=== PATIENT | female | born 1985 | race Caucasian/White ===

== ENCOUNTER 2016-08-20 13:53 | Emergency (ER) | payer BC ==
[2016-08-20] MEDS ORDERED: KETOROLAC TROMETHAMINE INJ/PF 30 MG/1 ML SDV IV ONE (14:19)
--- NOTE | 2016-08-20 14:21 | ER Document Report ---
ED Medical Screen (RME) - General Stated Complaint: RIGHT SIDE AND BACK PAIN Time seen by provider: 14:19 Mode of Arrival: Ambulatory Information source: Patient Notes: 31-year-old female complaining of right flank pain that woke her up at 5:30 and has now radiated to his right lower quadrant. She is unable to urinate the pain is very severe. She can't keep still. No history kidney stones. She has an IUD. - Related Data Allergies/Adverse Reactions: No Known Allergies Allergy (Verified 08/20/16 14:18)
[2016-08-20] MEDS ORDERED: ONDANSETRON 4 MG TAB.RAPDIS PO ONE (14:22)
[2016-08-20] MEDS ORDERED: MORPHINE SULFATE 10 MG/ML INJ IV ONE (14:22)
--- NOTE | 2016-08-20 14:49 | ER Document Report ---
ED GI/ <DEBMONAE - Last Filed: 08/20/16 17:11> - General Mode of Arrival: Ambulatory Information source: Patient TRAVEL OUTSIDE OF THE [place] IN LAST 30 DAYS: No - HPI Patient complains to provider of: Abdominal pain - RLQ and suprapubic, Flank pain - right. No: Vaginal discharge Onset: This morning Location: RLQ, Right flank, Suprapubic Sexual history: IUD Associated symptoms: Other - see above <ALLYSON PHILLIP - Last Filed: 08/20/16 23:21> - General Chief Complaint: Flank Pain Stated Complaint: RIGHT SIDE AND BACK PAIN Notes: 31 year old female with no history of endometriosis, ovarian cysts, abnormal pap smears, or gallbladder problems presents to the ED complaining of right flank pain which radiates to the RLQ and suprapubic regions that began at 05: 30a this morning. Patient states that the pain eased off later this morning and she went to work. Patient had fries for lunch and states that her right flank pain and RLQ pain started shortly after. Patient additionally complains of urinary retention and states that since she arrived to the ED, the pain has radiated to her suprapubic region. Patient denies burning with urination, hematuria, or vaginal discharge. Patient states that she had a normal bowel movement last night with no sign of blood. Patient has taken Tylenol this afternoon for pain, but to no relief. Patient states she has an IUD in place. ( ALLYSON PHILLIP) - Related Data Allergies/Adverse Reactions: No Known Allergies Allergy (Verified 08/20/16 14:18) Past Medical History - General Information source: Patient - Social History Smoking Status: Never Smoker Chew tobacco use (# tins/day): No Frequency of alcohol use: None Drug Abuse: None Family History: Reviewed & Not Pertinent Patient has suicidal ideation: No Patient has homicidal ideation: No - Medical History Medical History: Negative <ALLYSON PHILLIP - Last Filed: 08/20/16 23:21> Review of Systems - Review of Systems Constitutional: No symptoms reported EENT: No symptoms reported Cardiovascular: No symptoms reported Respiratory: No symptoms reported Gastrointestinal: See HPI, Abdominal pain - RLQ and suprapubic Genitourinary: See HPI, Flank pain - right flank pain, Retention. denies: Burning, Hematuria Female Genitourinary: No symptoms reported. denies: Vaginal discharge Musculoskeletal: No symptoms reported Skin: No symptoms reported Hematologic/Lymphatic: No symptoms reported Neurological/Psychological: No symptoms reported -: Yes All other systems reviewed and negative <ALLYSON PHILLIP - Last Filed: 08/20/16 23:21> Physical Exam <MONAE BOYD - Last Filed: 08/20/16 17:11> - General General appearance: Alert, Other - appears uncomfortable In distress: None - HEENT Head: Normocephalic, Atraumatic Eyes: Normal Extraocular movements intact: Yes Pupils: PERRL - Respiratory Respiratory status: No respiratory distress Breath sounds: Normal - Cardiovascular Rhythm: Regular Heart sounds: Normal auscultation - Abdominal Inspection: Normal Distension: No distension Tenderness: Nontender, Other - no rigidity. No: Guarding, Rebound - Extremities General upper extremity: Normal inspection, Normal ROM General lower extremity: Normal inspection, Normal ROM - Neurological Neuro grossly intact: Yes Cognition: Normal Orientation: AAOx4 [place] Coma Scale Eye Opening: Spontaneous [place] Coma Scale Verbal: Oriented [place] Coma Scale Motor: Obeys Commands [place] Coma Scale Total: 15 Speech: Normal - Psychological Associated symptoms: Normal affect, Normal mood - Skin Skin Temperature: Warm Skin Moisture: Dry Skin Color: Normal <ALLYSON PHILLIP - Last Filed: 08/20/16 23:21> - Vital signs Vitals: Temp Pulse Resp BP Pulse Ox 97.3 F 118 H 20 166/104 H 100 08/20/16 14:20 08/20/16 14:20 08/20/16 14:20 08/20/16 14:20 08/20/16 14:20 (MONAE BOYD) (ALLYSON PHILLIP) Course - Laboratory Result Diagrams: 08/20/16 15:00 08/20/16 15:00 <MONAE BOYD - Last Filed: 08/20/16 17:11> - Laboratory Result Diagrams: 08/20/16 15:00 08/20/16 15:00 <ALLYSON PHILLIP - Last Filed: 08/20/16 23:21> - Re-evaluation Re-evalutation: 08/20/16 17:09 I personally performed the services described in the documentation, reviewed and edited the documentation which was dictated to my scribe in my presence, and it accurately records my words and actions. She presents emergency Department with chief complaint of flank pain abdominal pain onset 5:30 this morning she said it came on severely and suddenly improved when she drove her kids to school and she came home and for several hours she's been suffering with right-sided flank pain. She says it feels like labor. Her right. The been regular and on time she denies a chance of being . She has no pelvic pain history of ovarian cyst or ectopic pregnancies in the past. She also denies a history of kidney stones. On examination she is a great deal of pain she is well-appearing nontoxic with stable vital signs other than tachycardia abdomen on serial abdominal examination no acute guarding rebound rigidity CT scan shows a 4.7 cm kidney stone with hydronephrosis her urine is not infected she's not febrile or septic. Pain is controlled with morphine and Zofran and Toradol here also gave HER-2 oral Percocet. Given a discharge her to home with Percocet Zofran patient about our urologist on-call doctor back she's call her office tomorrow to be seen in 2-3 days and discussed reasons for ED return sooner (MONAE BOYD) - Vital Signs Vital signs: Temp Pulse Resp BP Pulse Ox 97.4 F 73 16 113/68 100 08/20/16 18:01 08/20/16 18:01 08/20/16 18:01 08/20/16 18:01 08/20/16 18:01 (MONAE BOYD) (ALLYSON PHILLIP) - Laboratory Laboratory results interpreted by me: 08/20/16 08/20/16 15:00 15:00 Sodium 145.5 H Urine Blood SMALL H (MONAE BOYD) Scribe Documentation - Scribe Written by Scribe:: Yonathan Michael, 08/20/2016 16:10 acting as scribe for :: Deb <ALLYSON PHILLIP - Last Filed: 08/20/16 23:21>
[2016-08-20 15:27] LABS: ABSOLUTE EOSINOPHILS # (AUTO) 0.2 10^3/uL (0.0-0.6); ABSOLUTE LYMPHOCYTES (AUTO) 1.9 10^3/uL (0.5-4.7); ABSOLUTE MONOCYTES (AUTO) 0.5 10^3/uL (0.1-1.4); ABSOLUTE NEUT (AUTO) 6.6 10^3/uL (1.7-8.2); BASOPHILS % (AUTO) 0.5 % (0-2); EOSINOPHILS % (AUTO) 2.5 % (0-6); HEMATOCRIT 41.9 % (36.0-47.0); HEMOGLOBIN 14.4 g/dL (12.0-15.5); HGB HCT DIFFERENCE 1.3; LYMPHOCYTES % (AUTO) 20.5 % (13-45); MEAN CORPUSCULAR HEMOGLOBIN 27.5 pg (27.0-33.4); MEAN CORPUSCULAR HGB CONC 34.3 g/dL (32.0-36.0); MEAN CORPUSCULAR VOLUME 80 fl (80-97); MONOCYTES % (AUTO) 4.9 % (3-13); RED BLOOD COUNT 5.22 10^6/uL (3.72-5.28); RED CELL DISTRIBUTION WIDTH 13.7 % (11.5-14.0); SEGMENTED NEUTROPHILS % (AUTO) 71.6 % (42-78); WHITE BLOOD COUNT 9.2 10^3/uL (4.0-10.5)
[2016-08-20 15:30] LABS: AMORPHOUS SEDIMENT,URINE TRACE /HPF; APPEARANCE,URINE CLOUDY; BILIRUBIN,URINE NEGATIVE (NEGATIVE); GLUCOSE, URINE NEGATIVE (NEGATIVE); KETONES,URINE NEGATIVE (NEGATIVE); LEUKOCYTE ESTERASE,URINE NEGATIVE (NEGATIVE); NITRITE,URINE NEGATIVE (NEGATIVE); PROTEIN,URINE NEGATIVE (NEGATIVE); URINE SPECIFIC GRAVITY 1.025; UROBILINOGEN,URINE NEGATIVE mg/dL (<2.0)
[2016-08-20 15:36] LABS: ALANINE AMINOTRANSFERASE 36 U/L (9-52); ALBUMIN 4.2 g/dL (3.5-5.0); ALKALINE PHOSPHATASE 73 U/L (38-126); ANION GAP 13 (5-19); ASPARTATE AMINO TRANSFERASE 20 U/L (14-36); BILIRUBIN,TOTAL 0.4 mg/dL (0.2-1.3); BLOOD UREA NITROGEN 16 mg/dL (7-20); CALCIUM 9.6 mg/dL (8.4-10.2); CARBON DIOXIDE 28 mmol/L (22-30); CHLORIDE 105 mmol/L (98-107); CREATININE RESULT 0.72 mg/dL (0.52-1.25); GLUCOSE 86 mg/dL (75-110); POTASSIUM 3.8 mmol/L (3.6-5.0); SODIUM 145.5 mmol/L (137-145); TOTAL PROTEIN 7.4 g/dL (6.3-8.2)
[2016-08-20] MEDS ORDERED: OXYCODONE-ACETAMINOPHEN 5-325 MG TABLET PO ONE (17:09)
[2016-08-20 18:14] VITALS: BP 113/68
[2016-08-21 16:52] LABS: URINE BARBITURATES SCREEN NEGATIVE; URINE METHADONE SCREEN NEGATIVE; URINE PHENCYCLIDINE SCREEN NEGATIVE
--- NOTE | 2016-08-27 09:22 | ER Document Report ---
Doctor's Note Notes: 08/27/16 09:21 diagnosis 1. acute nephrolithiasis
== END 2016-08-20 18:14 | disposition home or self-care (01) ==
LOC: ER 13:53
DX: N20.0 Calculus of kidney (principal); R10.31 Right lower quadrant pain; R10.9 Unspecified abdominal pain
CPT/HCPCS: 99284; 51701; 96374; 96375; 36415; 87086; 84703; 85025; 80053; 81001; 80307; 76380; S0119; J1885; J2270

== ENCOUNTER 2016-08-21 06:59 | Emergency (ER) | payer BC ==
--- NOTE | 2016-08-21 07:44 | ER Document Report ---
ED GI/ - General Chief Complaint: Flank Pain Stated Complaint: FLANK PAIN Notes: Patient is a 31-year-old female who presents with 2 days of right flank pain radiating into her groin. She was diagnosed with a 4.6 mm right kidney stone yesterday in the emergency room and discharged home with Percocet. This morning , she had worsening pain and tried the Percocet, but vomited it up. She denies hematuria, fevers, hematemesis, diarrhea or constipation. TRAVEL OUTSIDE OF THE [place] IN LAST 30 DAYS: No - Related Data Allergies/Adverse Reactions: No Known Allergies Allergy (Verified 08/21/16 08:06) Past Medical History - General Information source: Patient - Social History Smoking Status: Never Smoker Chew tobacco use (# tins/day): No Frequency of alcohol use: None Drug Abuse: None Family History: Reviewed & Not Pertinent Patient has suicidal ideation: No Patient has homicidal ideation: No - Immunizations Hx Diphtheria, Pertussis, Tetanus Vaccination: Yes Review of Systems - Review of Systems Notes: REVIEW OF SYSTEMS: CONSTITUTIONAL: -fevers, -chills EENT: -eye pain, -difficulty swallowing, -nasal congestion CARDIOVASCULAR:-chest pain, -syncope. RESPIRATORY: -cough, -SOB GASTROINTESTINAL: -abdominal pain, +nausea, +vomiting, -diarrhea GENITOURINARY: -dysuria, -hematuria, +right flank pain MUSCULOSKELETAL: -back pain, -neck pain SKIN: -rash or skin lesions. HEMATOLOGIC: -easy bruising or bleeding. LYMPHATIC: -swollen, enlarged glands. NEUROLOGICAL: -altered mental status or loss of consciousness, -headache, - neurologic symptoms PSYCHIATRIC: -anxiety, -depression. ALL OTHER SYSTEMS REVIEWED AND NEGATIVE. Physical Exam - Vital signs Vitals: Temp Pulse Resp BP Pulse Ox 98.8 F 82 16 150/86 H 97 08/21/16 07:20 08/21/16 07:20 08/21/16 07:20 08/21/16 07:20 08/21/16 07:20 - Notes Notes: PHYSICAL EXAMINATION: GENERAL: Mild distress. HEAD: Atraumatic, normocephalic. EYES: Pupils equal round and reactive to light, extraocular movements intact, sclera anicteric, conjunctiva are normal. ENT: nares patent, oropharynx clear without exudates. Moist mucous membranes. NECK: Normal range of motion, supple without lymphadenopathy LUNGS: Breath sounds clear to auscultation bilaterally and equal. No wheezes rales or rhonchi. HEART: Regular rate and rhythm without murmurs ABDOMEN: Soft, nontender, normoactive bowel sounds. No guarding, no rebound. No masses appreciated. EXTREMITIES: Normal range of motion, no pitting or edema. No cyanosis. NEUROLOGICAL: Cranial nerves grossly intact. Normal speech, normal gait. Normal sensory, motor, and reflex exams. PSYCH: Normal mood, normal affect. SKIN: Warm, Dry, normal turgor, no rashes or lesions noted. Course - Re-evaluation Re-evalutation: 08/21/16 10:14 patient's pain and nausea under control at this time. Patient feels comfortable enough to go home to continue outpatient pain control and use her antinausea medicine. She will follow-up with the urologist this week. No evidence of infected kidney stone at this time. Given return precautions and she understands. - Vital Signs Vital signs: Temp Pulse Resp BP Pulse Ox 98.8 F 82 16 150/86 H 97 08/21/16 07:20 08/21/16 07:20 08/21/16 07:20 08/21/16 07:20 08/21/16 07:20 - Laboratory Laboratory results interpreted by me: 08/21/16 08:20 Urine Blood SMALL H Ur Leukocyte Esterase SMALL H Discharge - Discharge Clinical Impression: Kidney stone on right side Condition: Good Disposition: HOME, SELF-CARE Additional Instructions: KIDNEY STONE: You are passing or have passed a kidney stone. These stones are usually due to increased calcium or uric acid concentrations in your urine. Stones within the kidney itself are not painful. The pain occurs as the stone leaves the kidney to pass down the long tube, called the ureter, leading to the bladder. If the stone is small, it will usually pass by itself. Most patients can pass the stone at home. You will usually receive medications for pain, nausea or vomiting, and sometimes a medication to assist in passing the kidney stone. However, if the pain is very severe or if vomiting prevents you from taking oral pain medications, you may need to return for further treatment. Drink three or four quarts of fluids per day. You will be given pain medication (if needed) and urine strainers. Strain all your urine to see if the stone passes. If your doctor has asked you to bring the stone in for analysis, return with the stone once it has passed. Return if pain or vomiting become severe, if you develop a high fever, if you are unable to pass your urine, or if other unusual symptoms occur. TORADOL INJECTION: You have been given an injection of ketorolac tromethamine (Toradol). This is an excellent, safe drug for pain control. It also has potent antiinflammatory action. You should have significant pain relief within about one hour. Toradol is not addicting and is non-sedating. It does not interfere with driving or work. Call or return if you develop itching, hives, shortness of breath, or rash. PAIN MEDICATION INJECTION: You have received an injection of a pain medication. You should experience significant pain relief within 45 minutes. This drug is a narcotic - - it will impair your judgement, slow your reaction time and make you sleepy ( as well as relieve your pain). Narcotics also can cause nausea. You should not drive, work with machinery, or perform any task requiring mental alertness until all effects of the medication are gone -- six to eight hours. Do not take any alcohol, or sedatives, and do not take any other medication without checking with your physician. ANTINAUSEA MEDICATION: You have been given a medication to suppress nausea and vomiting. This type of medication can be given as a shot, pill, or suppository. It will usually last for many hours. Pills and shots usually last six to eight hours, suppositories last about 12 hours. For the typical illness, only one or two doses of the medication may be necessary. Mild lightheadedness may occur. This type of medicine can cause drowsiness. Do not drive or operate dangerous machinery while under its influence. Do not mix with alcohol. See your doctor at once if you have muscle spasms or tightness, or uncontrollable motions (particularly of the neck, mouth, or jaw). Persistent vomiting or severe lightheadedness should also be evaluated by the physician. ORAL NARCOTIC MEDICATION: You have been given a prescription for pain control. This medication is a narcotic. It's best taken with food, as nausea can result if taken on an empty stomach. Don't operate machinery or drive within six hours of taking this medication. Do not combine this medicine with alcohol, or with any medication which can cause sedation (such as cold tablets or sleeping pills) unless you get permission from the physician. Narcotics tend to cause constipation. If possible, drink plenty of fluids and eat a diet high in fiber and fruits. Please be aware that prescription narcotics also have the potential for abuse. People become addicted to these medications because of the general sense of wellbeing that they induce. This feeling along with a significant reduction in tension, anxiety, and aggression provides a stimulating seductive quality to these drugs. Once your pain is under control, we encourage you to discard your unused narcotics. FLOMAX (tamsulosin): Flomax is a medicine that shrinks the prostate gland. It helps relieve symptoms of benign prostatic hypertrophy, such as frequent urination, weak stream, and inadequate emptying. It has been shown to dilate the ureter (tube leading from the kidney to the bladder) and help in passing kidney stones Flomax usually causes no side effects. You may notice slight tiredness and dizziness for a few days. Some patients develop nasal congestion. Rarely, impotence can occur. If the symptoms are bothersome and don't improve with continued use, call your doctor. Contact your doctor or return if you have fainting spells, severe weakness or dizziness, shortness of breath, or rash. FOLLOW-UP CARE: If you have been referred to a physician for follow-up care, call the physician s office for an appointment as you were instructed or within the next two days. If you experience worsening or a significant change in your symptoms, notify the physician immediately or return to the Emergency Department at any time for re-evaluation. Prescriptions: Tamsulosin HCl [Flomax 0.4 mg Cap.sr] 0.4 mg PO DAILY #7 cap.[id number] Referrals: ALISON RED MD [ACTIVE STAFF] - Follow up as needed
[2016-08-21] MEDS ORDERED: MORPHINE SULFATE 10 MG/ML INJ IV ONE ×2 (07:47→09:32)
[2016-08-21] MEDS ORDERED: KETOROLAC TROMETHAMINE INJ/PF 30 MG/1 ML SDV IV ONE (07:47)
[2016-08-21] MEDS ORDERED: ONDANSETRON HCL INJ/PF 4 MG/2 ML SDV IV ONE (07:47)
[2016-08-21] MEDS ORDERED: NORMAL SALINE 1000 ML 1,000 ML IV ONE (08:12)
[2016-08-21 08:59] LABS: APPEARANCE,URINE SLIGHTLY-CLOUDY; BILIRUBIN,URINE NEGATIVE (NEGATIVE); CALCIUM OXALATE CRYSTALS,URINE MANY /HPF; GLUCOSE, URINE NEGATIVE (NEGATIVE); KETONES,URINE NEGATIVE (NEGATIVE); LEUKOCYTE ESTERASE,URINE SMALL (NEGATIVE); NITRITE,URINE NEGATIVE (NEGATIVE); PROTEIN,URINE NEGATIVE (NEGATIVE); URINE SPECIFIC GRAVITY 1.026; UROBILINOGEN,URINE NEGATIVE mg/dL (<2.0)
[2016-08-21] MEDS ORDERED: ONDANSETRON 4 MG TAB.RAPDIS PO ONE (10:13)
[2016-08-21 10:32] VITALS: BP 129/70
[2016-08-21] MEDS ORDERED: METOCLOPRAMIDE HCL INJ/PF 10 MG/2 ML SDV IV ONE (10:35)
== END 2016-08-21 11:00 | disposition home or self-care (01) ==
LOC: ER 06:59
DX: N20.0 Calculus of kidney (principal); R10.9 Unspecified abdominal pain; R11.2 Nausea with vomiting, unspecified
CPT/HCPCS: 96376; 99284; 96361; 96374; 96375; 81001; S0119; J1885; J2765; J2270; J2405; J7030

== ENCOUNTER → 2017-08-23 | Outpatient (CLI) | payer SELFPAY ==
[2017-08-23 12:04] LABS: ABSOLUTE EOSINOPHILS # (AUTO) 0.3 10^3/uL (0.0-0.6); ABSOLUTE LYMPHOCYTES (AUTO) 1.6 10^3/uL (0.5-4.7); ABSOLUTE MONOCYTES (AUTO) 0.6 10^3/uL (0.1-1.4); ABSOLUTE NEUT (AUTO) 6.7 10^3/uL (1.7-8.2); BASOPHILS % (AUTO) 0.5 % (0-2); EOSINOPHILS % (AUTO) 2.8 % (0-6); HEMATOCRIT 39.4 % (36.0-47.0); HEMOGLOBIN 13.3 g/dL (12.0-15.5); LYMPHOCYTES % (AUTO) 17.4 % (13-45); MEAN CORPUSCULAR HEMOGLOBIN 27.4 pg (27.0-33.4); MEAN CORPUSCULAR HGB CONC 33.8 g/dL (32.0-36.0); MEAN CORPUSCULAR VOLUME 81 fl (80-97); MONOCYTES % (AUTO) 6.5 % (3-13); PLATELET COUNT 226 10^3/uL (150-450); RED BLOOD COUNT 4.87 10^6/uL (3.72-5.28); RED CELL DISTRIBUTION WIDTH 13.8 % (11.5-14.0); SEGMENTED NEUTROPHILS % (AUTO) 72.8 % (42-78); TOTAL CELLS COUNTED % (AUTO) 100 %; WHITE BLOOD COUNT 9.2 10^3/uL (4.0-10.5)
[2017-08-23 12:30] LABS: ALANINE AMINOTRANSFERASE 33 U/L (9-52); ALBUMIN 4.6 g/dL (3.5-5.0); ALKALINE PHOSPHATASE 75 U/L (38-126); ANION GAP 13 (5-19); ASPARTATE AMINO TRANSFERASE 18 U/L (14-36); BILIRUBIN,DIRECT 0.3 mg/dL (0.0-0.4); BILIRUBIN,TOTAL 0.5 mg/dL (0.2-1.3); BLOOD UREA NITROGEN 17 mg/dL (7-20); CALCIUM 9.8 mg/dL (8.4-10.2); CARBON DIOXIDE 25 mmol/L (22-30); CHLORIDE 103 mmol/L (98-107); GLUCOSE 84 mg/dL (75-110); LIPASE 62.3 U/L (23-300); POTASSIUM 4.4 mmol/L (3.6-5.0); SODIUM 141.1 mmol/L (137-145); TOTAL PROTEIN 7.3 g/dL (6.3-8.2)
--- NOTE | 2017-08-23 14:07 | RADIOLOGY REPORT (SQ) ---
EXAM DESCRIPTION: ABDOMEN 2 VIEWS COMPLETED DATE/TIME: 08/23/2017 12:11 pm REASON FOR STUDY: UNSPECIFIED ABDOMINAL PAIN R10.9 UNSPECIFIED ABDOMINAL PAIN R10.9 UNSPECIFIED AB DOMINAL PAIN R10.9 UNSPECIFIED ABDOMINAL PAIN COMPARISON: None. NUMBER OF VIEWS: Two views. TECHNIQUE: Supine and erect/decubitus radiographic images of the abdomen acquired. LIMITATIONS: None. FINDINGS: FREE AIR: None. No abnormal gas collections. LUNG BASES: Clear. BOWEL GAS PATTERN: Nonobstructive pattern. No dilated loops or air fluid levels. CALCIFICATIONS: No suspicious calcifications. SOFT TISSUES: No gross mass or suggestion of organomegaly. HARDWARE: IUD. BONES: No acute fracture. No worrisome bone lesions. OTHER: No other significant finding. IMPRESSION: NO RADIOGRAPHIC EVIDENCE FOR ACUTE ABDOMINAL DISEASE. TECHNICAL DOCUMENTATION: JOB ID: [id number] [employer]- All Rights Reserved
== END ==
LOC: OD 11:19
PROVIDERS: ATTEND Nurse Practitioner Acute Care
DX: R10.9 Unspecified abdominal pain (principal)
CPT/HCPCS: 36415; 74019; 80053; 83690; 85025; 87086

== ENCOUNTER 2019-06-26 18:05 | Emergency (ER) | payer BC ==
--- NOTE | 2019-06-26 20:06 | ER Document Report ---
ED Medical Screen (RME) - General Chief Complaint: Irregular Pulse Stated Complaint: CHEST TIGHTNESS Time Seen by Provider: 06/26/19 19:57 Primary Care Provider: ANDRES BHATT NP [Primary Care Provider] - Follow up as needed Notes: Patient is a 34-year-old female who presents emergency department with a chief complaint of her heart skipping beats. Patient reports is been intermittent over the past few years but worse over the past few days. Patient reports she is under a lot more stress that she is watching two extra kids in her home. Patient reports she also has a cough and congestion has been treating herself with [id number] Advil Cold and Sinus and Mucinex. Patient reports she does drink 1 cup of coffee per day but has not had any additional caffeine. TRAVEL OUTSIDE OF THE [place] IN LAST 30 DAYS: No - Related Data Allergies/Adverse Reactions: No Known Allergies Allergy (Verified 08/21/16 08:06) Home Medications: mucinex prn. advil cold and sinus prn Past Medical History - Social History Frequency of alcohol use: None Drug Abuse: None - Immunizations Hx Diphtheria, Pertussis, Tetanus Vaccination: Yes Physical Exam - Vital signs Vitals: Temp Pulse Resp BP Pulse Ox 98.1 F 80 16 126/83 H 100 06/26/19 18:51 06/26/19 18:51 06/26/19 18:51 06/26/19 18:51 06/26/19 18:51 Course - Re-evaluation Re-evalutation: 06/26/19 20:06 I have greeted and performed a rapid initial assessment of this patient. A comp rehensive ED assessment and evaluation of the patient, analysis of test results and completion of the medical decision making process will be conducted by additional ED providers. - Vital Signs Vital signs: Temp Pulse Resp BP Pulse Ox 98.1 F 80 16 126/83 H 100 06/26/19 18:51 06/26/19 18:51 06/26/19 18:51 06/26/19 18:51 06/26/19 18:51 Doctor's Discharge - Discharge Referrals: ANDRES BHATT NP [Primary Care Provider] - Follow up as needed
[2019-06-26 20:47] LABS: ABSOLUTE BASOPHILS # (AUTO) 0.1 10^3/uL (0.0-0.2); ABSOLUTE EOSINOPHILS # (AUTO) 0.3 10^3/uL (0.0-0.6); ABSOLUTE LYMPHOCYTES (AUTO) 1.5 10^3/uL (0.5-4.7); ABSOLUTE MONOCYTES (AUTO) 0.4 10^3/uL (0.1-1.4); ABSOLUTE NEUT (AUTO) 4.6 10^3/uL (1.7-8.2); EOSINOPHILS % (AUTO) 3.7 % (0-6); HEMATOCRIT 39.5 % (36.0-47.0); HEMOGLOBIN 13.5 g/dL (12.0-15.5); LYMPHOCYTES % (AUTO) 21.9 % (13-45); MEAN CORPUSCULAR HEMOGLOBIN 27.5 pg (27.0-33.4); MEAN CORPUSCULAR HGB CONC 34.1 g/dL (32.0-36.0); MEAN CORPUSCULAR VOLUME 81 fl (80-97); PLATELET COUNT 243 10^3/uL (150-450); RED BLOOD COUNT 4.88 10^6/uL (3.72-5.28); RED CELL DISTRIBUTION WIDTH 13.6 % (11.5-14.0); SEGMENTED NEUTROPHILS % (AUTO) 67.4 % (42-78); TOTAL CELLS COUNTED % (AUTO) 100 %; WHITE BLOOD COUNT 6.8 10^3/uL (4.0-10.5)
[2019-06-26 21:03] LABS: ALBUMIN 4.3 g/dL (3.5-5.0); ALKALINE PHOSPHATASE 78 U/L (38-126); ANION GAP 8 (5-19); ASPARTATE AMINO TRANSFERASE 20 U/L (14-36); BILIRUBIN,DIRECT 0.1 mg/dL (0.0-0.4); BILIRUBIN,TOTAL 0.3 mg/dL (0.2-1.3); BLOOD UREA NITROGEN 16 mg/dL (7-20); CALCIUM 9.8 mg/dL (8.4-10.2); CARBON DIOXIDE 29 mmol/L (22-30); CHLORIDE 104 mmol/L (98-107); GLUCOSE 90 mg/dL (75-110); POTASSIUM 4.2 mmol/L (3.6-5.0); TOTAL PROTEIN 7.4 g/dL (6.3-8.2)
--- NOTE | 2019-06-26 21:26 | RADIOLOGY REPORT (SQ) ---
EXAM DESCRIPTION: XR CHEST 2 VIEWS COMPLETED DATE/TME: 06/26/2019 20:03 CLINICAL HISTORY: 34 years, Female, chest palpitations EXAM DESCRIPTION: CLINICAL HISTORY: chest palpitations COMPARISON: None. FINDINGS: Two views of the chest are submitted. Cardiac silhouette appears normal. No focal parenchymal or pleural disease. No acute bony abnormality. There is no significant pulmonary vascular engorgement. IMPRESSION: No evidence of acute cardiopulmonary disease.
--- NOTE | 2019-06-26 22:53 | ER Document Report ---
ED General - General Chief Complaint: Irregular Pulse Stated Complaint: CHEST TIGHTNESS Time Seen by Provider: 06/26/19 19:57 Primary Care Provider: ANDRES BHATT NP [NURSE PRACTITIONER] - Follow up as needed Notes: MARCELA NOTE: Patient is a 34-year-old female who presents emergency department with a chief complaint of her heart skipping beats. Patient reports is been intermittent over the past few years but worse over the past few days. Patient reports she is under a lot more stress that she is watching two extra kids in her home. Patient reports she also has a cough and congestion has been treating herself with [id number] Advil Cold and Sinus and Mucinex. Patient reports she does drink 1 cup of coffee per day but has not had any additional caffeine. MY HPI: Patient voices she does feel as though her heart intermittently "skips a beat." She is denying any chest pain or shortness of breath. She is denying any lightheadedness or dizziness. States in the past she has worn a Holter monitor for "heart issues." States the tax economist told her "nothing was wrong." States she does go to her primary care provider on a yearly basis. States her thyroid has been checked multiple times in the past and she has never been told she is had any issues. Patient voices she takes no daily medications, has no allergies, is denying any medical problems that she knows of. TRAVEL OUTSIDE OF THE [place] IN LAST 30 DAYS: No - Related Data Allergies/Adverse Reactions: No Known Allergies Allergy (Verified 08/21/16 08:06) Home Medications: mucinex prn. advil cold and sinus prn Past Medical History - General Information source: Patient - Social History Smoking Status: Current Every Day Smoker Frequency of alcohol use: None Drug Abuse: None Family History: Reviewed & Not Pertinent Patient has suicidal ideation: No Patient has homicidal ideation: No - Immunizations Hx Diphtheria, Pertussis, Tetanus Vaccination: Yes Review of Systems - Review of Systems Constitutional: denies: Fever EENT: No symptoms reported Cardiovascular: See HPI Respiratory: See HPI Gastrointestinal: No symptoms reported Genitourinary: No symptoms reported Female Genitourinary: No symptoms reported Musculoskeletal: No symptoms reported Skin: No symptoms reported Hematologic/Lymphatic: No symptoms reported Neurological/Psychological: No symptoms reported Physical Exam - Vital signs Vitals: Temp Pulse Resp BP Pulse Ox 98.1 F 80 16 126/83 H 100 06/26/19 18:51 06/26/19 18:51 06/26/19 18:51 06/26/19 18:51 06/26/19 18:51 - Notes Notes: GENERAL: Alert, interacts well. No acute distress. HEAD: Normocephalic, atraumatic. EYES: Pupils equal, round, and reactive to light. Extraocular movements intact. ENT: Oral mucosa moist, tongue midline. NECK: Full range of motion. Supple. Trachea midline. LUNGS: Clear to auscultation bilaterally, no wheezes, rales, or rhonchi. No respiratory distress. HEART: Regular rate and rhythm. No murmur ABDOMEN: Soft, non-tender. Non-distended. Bowel sounds present in all 4 quadra nts. EXTREMITIES: Moves all 4 extremities spontaneously. No edema, normal radial and dorsalis pedis pulses bilaterally. No cyanosis. BACK: no cervical, thoracic, lumbar midline tenderness. No saddle anesthesia, normal distal neurovascular exam. NEUROLOGICAL: Alert and oriented x3. Normal speech. cranial nerves II through XII grossly intact. PSYCH: Normal affect, normal mood. SKIN: Warm, dry, normal turgor. No rashes or lesions noted. Course - Re-evaluation Re-evalutation: Laboratory 06/26/19 06/26/19 06/26/19 20:28 20:28 20:28 WBC 6.8 RBC 4.88 Hgb 13.5 Hct 39.5 MCV 81 MCH 27.5 MCHC 34.1 RDW 13.6 Plt Count 243 Lymph % (Auto) 21.9 [place] % (Auto) 6.0 Eos % (Auto) 3.7 Baso % (Auto) 1.0 Absolute Neuts (auto) 4.6 Absolute Lymphs (auto) 1.5 Absolute Monos (auto) 0.4 Absolute Eos (auto) 0.3 Absolute Basos (auto) 0.1 Seg Neutrophils % 67.4 Sodium 140.9 Potassium 4.2 Chloride 104 Carbon Dioxide 29 Anion Gap 8 BUN 16 Creatinine 0.70 Est GFR ( Amer) > 60 Est GFR (MDRD) Non-Af > 60 Glucose 90 Calcium 9.8 Total Bilirubin 0.3 Direct Bilirubin 0.1 Neonat Total Bilirubin Not Reportable Neonat Direct Bilirubin Not Reportable Neonat Indirect Bili Not Reportable AST 20 ALT 24 Alkaline Phosphatase 78 Troponin I < 0.012 Total Protein 7.4 Albumin 4.3 TSH Serum HCG, Qual 06/26/19 06/26/19 20:28 20:28 WBC RBC Hgb Hct MCV MCH MCHC RDW Plt Count Lymph % (Auto) [place] % (Auto) Eos % (Auto) Baso % (Auto) Absolute Neuts (auto) Absolute Lymphs (auto) Absolute Monos (auto) Absolute Eos (auto) Absolute Basos (auto) Seg Neutrophils % Sodium Potassium Chloride Carbon Dioxide Anion Gap BUN Creatinine Est GFR ( Amer) Est GFR (MDRD) Non-Af Glucose Calcium Total Bilirubin Direct Bilirubin Neonat Total Bilirubin Neonat Direct Bilirubin Neonat Indirect Bili AST ALT Alkaline Phosphatase Troponin I Total Protein Albumin TSH 0.39 L Serum HCG, Qual NEGATIVE Chest X-Ray 06/26/19 20:03 IMPRESSION: No evidence of acute cardiopulmonary disease. EKG shows a sinus rhythm rate of 89, QTc 453, [address] segment elevations or depressions noted. I discussed with patient at length at bedside this is most likely due to PVCs. I discussed close follow-up with cardiology and primary care provider for repeat thyroid testing. Patient's thyroid level was noted to be slightly decreased. Patient exhibits no signs of thyroid storm. Patient is actually sitting in a chair in the room, states she would like to be discharged. States she "feels fine now." Again discussed with her need for close follow-up with cardiology and primary care provider. Patient voices understanding. Stable for discharge. - Vital Signs Vital signs: Temp Pulse Resp BP Pulse Ox 98.1 F 80 16 126/83 H 100 06/26/19 18:51 06/26/19 18:51 06/26/19 18:51 06/26/19 18:51 06/26/19 18:51 - Laboratory Result Diagrams: 06/26/19 20:28 06/26/19 20:28 Laboratory results interpreted by me: 06/26/19 20:28 TSH 0.39 L Discharge - Discharge Clinical Impression: Premature ventricular beat, Hyperthyroidism Condition: Stable Disposition: HOME, SELF-CARE Instructions: PVCs ([facility]), Hyperthyroidism ([facility]) Additional Instructions: As we discussed you have been seen and treated in the emergency department for your heart complaints. Your EKG shows a premature ventricular contraction. These can sometimes be normal with increase in caffeine intake alcohol, stress. Your thyroid level was also noted to be slightly irregular. Please make sure you follow-up with cardiology and your primary care provider for repeat thyroid testing. Phone numbers will be provided in this packet. Please return to the emergency department for any concerns. Forms: Return to Work Referrals: ANDRES BHATT NP [NURSE PRACTITIONER] - Follow up as needed NIKA EVANS MD [ACTIVE STAFF] - Follow up as needed
[2019-06-26 23:07] VITALS: BP 122/80
--- NOTE | 2019-06-27 11:37 | EKG REPORT ---
SEVERITY:- OTHERWISE NORMAL ECG - SINUS RHYTHM VENTRICULAR PREMATURE COMPLEX MINIMAL ST DEPRESSION, DIFFUSE LEADS : Confirmed by: Sangeetha Ching MD 27-Jun-2019 11:36:49
== END 2019-06-26 23:04 | disposition home or self-care (01) ==
LOC: ER 18:05
DX: I49.3 Ventricular premature depolarization (principal); R05 Cough; F17.200 Nicotine dependence, unspecified, uncomplicated
CPT/HCPCS: 36415; 71046; 80053; 84443; 84484; 84703; 85025; 93005; 93010; 99285